=== PATIENT | female | born 1980 | race Asian ===

== ENCOUNTER → 2023-01-24 | Outpatient (CLI) | payer MEDICAID ==
[2023-01-25 06:06] LABS: RUBELLA AB IGG-REFLAB 4.93 index (Immune >0.99); RUBEOLA (MEASLES) IGG >300.0 AU/mL (Immune >16.4)
[2023-01-26 12:07] LABS: QUANTIFERON, TB GOLD PLUS Positive (Negative)
== END | disposition home or self-care (01) ==
LOC: LABMN 11:43
PROVIDERS: ATTEND Family Medicine
DX: Z11.3 Encounter for screening for infections with a predominantly sexual mode of transmission (principal); Z20.828 Contact with and (suspected) exposure to other viral communicable diseases; Z02.89 Encounter for other administrative examinations; Z20.1 Contact with and (suspected) exposure to tuberculosis
CPT/HCPCS: 86480; 86592; 86706; 86735; 86762; 86765; 86787; 87340; 87491; 87591